=== PATIENT | female | born 1985 | race African-American/Black ===

== ENCOUNTER 2025-09-10 09:38 | Emergency (ER) | payer MEDICAID ==
[~2025-09-10] VITALS: Ht 165.1 cm; Wt 81.8 kg
[2025-09-10 10:07] VITALS: TEMP 98
[2025-09-10 10:20] LABS: PLATELET COUNT (AUTO) 364 K/uL (150-450); RED BLOOD CELL COUNT(AUTO) 4.40 MIL/uL (4.00-5.20); RED CELL DISTRIBUTION WIDTH 13.2 % (11.5-14.5); WHITE BLOOD COUNT (AUTO) 9.6 K/uL (4.5-11.0)
[2025-09-10 10:35] LABS: CALCIUM, TOTAL 8.6 mg/dL (8.8-10.5); CREATININE 0.44 mg/dL (0.60-1.30); GLOMERULAR FILTR. RATE CALC > 60 mL/min (>60); GLUCOSE,RANDOM 100 mg/dL (70-110); SODIUM SERUM 138 mmol/L (136-145); UREA NITROGEN, BLOOD 6 mg/dL (7-18)
[2025-09-10 13:00] VITALS: BP 122/85; PULSE 69; RESP 16; O2SAT 98
[2025-09-10] MEDS ORDERED: ACET-2080 PO (14:02)
[2025-09-10] MEDS ORDERED: IBUP-1554 PO (14:02)
[2025-09-10] MEDS ORDERED: [UNRECOGNIZED DRUG - CODE] PO (14:02)
[2025-09-10] MEDS: ACETAMINOPHEN/CODEINE 300-30 MG TABLET PO ONE (14:11)
[2025-09-10] MEDS: METHYLERGONOVINE MALEATE 0.2 MG/ML VIAL IM ONE (14:11)
[2025-09-10] MEDS: IBUPROFEN 600 MG TABLET PO ONE (14:11)
== END 2025-09-10 14:41 | disposition home or self-care (01) ==
LOC: EMS 09:38
DX: O03.9 Complete or unspecified spontaneous abortion without complication (principal); N89.8 Other specified noninflammatory disorders of vagina; Z79.899 Other long term (current) drug therapy
CPT/HCPCS: 99285; 76801; 80048; 84702; 84703; 85025; 86901; 36415; 96372; J2210; 88307